=== PATIENT | female | born 1985 | race Caucasian/White ===

== ENCOUNTER 2016-06-14 14:34 | Emergency (ER) | payer BC ==
[~2016-06-14] VITALS: Ht 160 cm; Wt 71.4 kg
[~2016-06-14 14:34] MED LIST: ALBUTEROL SULF8.5 GM IH; DOCUSATE SODIU100 MG PO; ENDOCET 5-3251 EACH PO; IBUPROFEN800 MG PO; IMITREX100 MG PO; MOTRIN800 MG PO; NOHOMEMEDS; Natalcare Rx,Pramile PO; PERCOCET 5/31 TABLET PO; PRENATAL TABLE1 EAC3 PO; PROCARDIA20 MG PO; PROCTOFOAM-HC10 GM PR; PROGESTERONE50 MG/ML IJ; PYRIDIUM200 MG PO; SUPPLEMENT; TUMS500 MG PO; VITAMIN; ZANTAC150 MG PO; ZOFRAN ODT4 MG PO
[2016-06-14 15:01] LABS: HEMATOCRIT 41.8 % (36.0-46.0); MCH 31.9 PG (29.0-34.0); MCHC 33.7 G/DL (30.0-36.0); MCV 94.6 FL (83-99); MEAN PLAT.VOLUME 8.9 uM^3 (9.5-12.4); PLATELET COUNT 268 K/uL (156-360); RBC DIS.WIDTH-CV 12.1 % (11.8-14.6); RBC DIS.WIDTH-SD 41.8 % (39-53); RED BLOOD COUNT 4.42 M/uL (3.80-5.20); WHITE BLOOD COUNT 8.9 K/uL (4.1-10.2)
[2016-06-14 15:13] LABS: CHLORIDE 105 mEq/L (99-109); POTASSIUM 3.9 mEq/L (3.7-5.4); SODIUM 139 mEq/L (136-147)
[2016-06-14 15:14] LABS: GLUCOSE 96 mg/dL (70-99)
[2016-06-14 15:16] LABS: ANION GAP 11 MEQ/L (2-14)
[2016-06-14 15:18] LABS: GFR ESTIMATE (CALCULATED) > 59 mL/min/
[2016-06-14 15:19] LABS: UREA NITROGEN (BUN) 12 mg/dL (9-23)
[2016-06-14 15:24] LABS: TROP-I INTERPRETATION NEGATIVE; TROPONIN-I < 0.01 ng/mL (0.0-0.30)
[2016-06-14 16:33] LABS: D-DIMER ELISA 0.56 mg/L FEU (< 0.57)
[2016-06-14 16:41] LABS: QUANTITATIVE HCG < 4.0 MIU/ML
[2016-06-14 17:23] LABS: TROP-I INTERPRETATION NEGATIVE; TROPONIN-I < 0.01 ng/mL (0.0-0.30)
[2016-06-14] MEDS ORDERED: NAPROSYN500 MG PO (19:27)
[2016-06-14] MEDS ORDERED: TRAMADOL HCL50 MG PO (19:34)
[2016-06-14 19:38] VITALS: BP 124/67
[2016-06-17] MEDS ORDERED: SPRINTEC1 EACH PO (13:59)
[2016-06-17] MEDS ORDERED: VITAMIN D31000 UNIT PO (13:59)
[2016-06-17] MEDS ORDERED: PROBIOTIC1 EAC2 PO (13:59)
[2016-06-17] MEDS ORDERED: FOLIC ACID1 MG PO (13:59)
[2016-06-17] MEDS ORDERED: OMEGA 3-6-9 11200 MG PO (14:00)
[2016-06-17] MEDS ORDERED: CLARITIN,ALAVAR10 MG PO (14:01)
[2016-06-17] MEDS ORDERED: NAPROSYN500 MG PO (14:06)
== END 2016-06-14 19:40 | disposition home or self-care (01) ==
LOC: EME 14:34
PROVIDERS: Physician Assistant
DX: R09.1 Pleurisy (principal); Z79.3 Long term (current) use of hormonal contraceptives; Z87.891 Personal history of nicotine dependence
CPT/HCPCS: 71020; 71275; 80048; 84484; 84702; 85027; 85379; 93005; 99281; 99285; J1885; J3010; J7030

== ENCOUNTER 2016-06-21 05:38 | Day surgery (SDC) | payer BC ==
[~2016-06-21] VITALS: Ht 157.5 cm; Wt 73.0 kg
[~2016-06-21 05:38] MED LIST changes: +CLARITIN,ALAVAR10 MG PO; +FOLIC ACID1 MG PO; +NAPROSYN500 MG PO; +OMEGA 3-6-9 11200 MG PO; +PROBIOTIC1 EAC2 PO; +SPRINTEC1 EACH PO; +TRAMADOL HCL50 MG PO; +VITAMIN D31000 UNIT PO
[2016-06-21 06:06] VITALS: BP 120/90
[2016-06-21] MEDS ORDERED: TRAMADOL HCL50 MG PO (09:05)
[2016-06-21 10:48] VITALS: BP 130/86
[2016-06-21 11:45] VITALS: BP 119/72
[2016-06-21 12:29] VITALS: BP 122/83
== END 2016-06-21 12:48 | disposition home or self-care (01) ==
LOC: SDC 05:38
DX: N84.0 Polyp of corpus uteri (principal); N92.0 Excessive and frequent menstruation with regular cycle; Z30.2 Encounter for sterilization; J45.909 Unspecified asthma, uncomplicated; Z87.891 Personal history of nicotine dependence; Z88.5 Allergy status to narcotic agent
CPT/HCPCS: 88304; 88305; J0131; J1100; J1170; J1885; J2250; J2405; J2765; J3010

== ENCOUNTER 2017-10-01 13:07 | Emergency (ER) | payer BC ==
[~2017-10-01] VITALS: Ht 157.5 cm; Wt 63.6 kg
[2017-10-01 14:00] LABS: HEMATOCRIT 42.9 % (36.0-46.0); HEMOGLOBIN 14.9 G/DL (11.9-15.5); MCH 32.6 PG (29.0-34.0); MCHC 34.7 G/DL (30.0-36.0); MCV 93.9 FL (83-99); PLATELET COUNT 236 K/uL (156-360); RBC DIS.WIDTH-SD 41.4 % (39-53); RED BLOOD COUNT 4.57 M/uL (3.80-5.20); WHITE BLOOD COUNT 7.1 K/uL (4.1-10.2)
[2017-10-01 14:11] LABS: CHLORIDE 107 mEq/L (99-109); POTASSIUM 4.4 mEq/L (3.7-5.4); SODIUM 138 mEq/L (136-147)
[2017-10-01 14:13] LABS: GLUCOSE 92 mg/dL (70-99)
[2017-10-01 14:16] LABS: APPEARANCE CLOUDY ((CLEAR)); BILIRUBIN NEGATIVE; BLOOD NEGATIVE; COLOR YELLOW ((YELLOW)); GLUCOSE (STRIP) NEGATIVE; KETONES NEGATIVE; LEUKOCYTES LARGE; NITRITE NEGATIVE; PROTEIN (STRIP) NEGATIVE; SPECIFIC GRAVITY 1.014 (1.000-1.030); UROBILINOGEN 0.2 MG/DL (0.2-1.0)
[2017-10-01 14:17] LABS: CREATININE 0.8 mg/dL (0.6-1.3); GFR ESTIMATE (CALCULATED) > 59 mL/min/
[2017-10-01 14:18] LABS: UREA NITROGEN (BUN) 12 mg/dL (9-23)
[2017-10-01 14:26] LABS: QUANTITATIVE HCG < 4.0 MIU/ML
[2017-10-01 15:24] LABS: RED BLOOD CELLS NONE SEEN /HPF (0-5); WHITE BLOOD CELLS RARE /HPF (0-5)
[2017-10-01 15:25] LABS: AMORPHOUS PHOSPHATE CRYSTALS 2+; BACTERIA 1+ /HPF; EPITHELIAL CELLS RARE /HPF; MUCUS NONE SEEN /LPF; UCUL ADDED? NO
[2017-10-01] MEDS ORDERED: BACTRIM,SEPT1 TABLET PO (17:53)
[2017-10-01] MEDS ORDERED: ULTRAM50 MG PO (18:11)
[2017-10-01 19:27] VITALS: BP 121/84
== END 2017-10-01 19:28 | disposition home or self-care (01) ==
LOC: EME 13:07
DX: N12 Tubulo-interstitial nephritis, not specified as acute or chronic (principal); J45.909 Unspecified asthma, uncomplicated; Z87.891 Personal history of nicotine dependence; Z87.442 Personal history of urinary calculi
CPT/HCPCS: 74176; 80048; 81003; 84702; 85027; 99281; 99284; J1885